=== PATIENT | male | born 2005 | race Caucasian/White ===

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

== ENCOUNTER 2023-06-13 05:55 | Day surgery (SDC) | payer OTHER ==
[2023-06-13 06:38] VITALS: RESP 18
[2023-06-13] MEDS ORDERED: Lactated Ringers 1,000 ML IV ONE (06:49)
[2023-06-13] MEDS ORDERED: Lactated Ringers 1,000 ML IV SCH (07:00)
[2023-06-13] MEDS ORDERED: DIPRIVAN 200 MG/20 ML IV ONE ×2 (07:43→08:03)
[2023-06-13] MEDS ORDERED: Versed 2 MG/2 ML Injection ONE (07:43)
[2023-06-13] MEDS ORDERED: Xylocaine-Mpf 2% 5 Ml Vial ONE (07:43)
[2023-06-13] MEDS ORDERED: SUBLIMAZE 100 MCG/2 ML ONE (07:43)
[2023-06-13 08:59] VITALS: BP 125/79; PULSE 56; TEMP 99.1; O2SAT 100
--- NOTE | 2023-06-13 09:53 | OP ---
SURGERY DATE/TIME: 06/13/2023 0746 PREOPERATIVE DIAGNOSIS: Rectal bleeding. POSTOPERATIVE DIAGNOSIS: Normal colon. PROCEDURE: Colonoscopy. SURGEON: Dr. Love. ANESTHESIA: Medications given by anesthesia department. HISTORY: The patient is a 18-year-old white male patient who reports he has been having bleeding from the rectum off and on for the past six months. He also reports that there has been blood mixed in with the stool but most often on the toilet paper when he wipes. The patient has had no problems otherwise with his colon in regards to diarrhea or mucousy stool. The patient was felt the need to have endoscopic evaluation. He was appraised of the risks of the procedure including the risk of perforation, phlebitis, untoward reaction to medication, bleeding and missed lesions. The patient verbalized his understanding and desired to have the procedure performed. DESCRIPTION OF PROCEDURE: The patient was given the medications by the anesthesia department. He had continuous pulse oximetry, ECG monitoring and intermittent blood pressure monitoring during the examination. He was placed in the left lateral decubitus position. A digital rectal examination was performed and revealed normal anal sphincter tone, no masses and normal prostate. No significant hemorrhoids were noted. The flexible Olympus pediatric colonoscope was used to intubate the rectum. A view of the colon was developed sequentially to the cecum including approximately 10 cm into the terminal ileum. Upon insertion and withdrawal, including a retroflex view in the rectum, no mucosal lesions were encountered. The scope was removed from the patient who tolerated the procedure well and was sent back to OP recovery in good condition. The prep was noted to be fair to good.
== END 2023-06-13 09:06 | disposition home or self-care (01) ==
LOC: SDC 05:55
PROVIDERS: ATTEND Family Medicine
DX: K92.1 Melena (principal)
CPT/HCPCS: J2250; J2704; J3010

== ENCOUNTER 2024-06-07 03:18 | Emergency (ER) | payer OTHER ==
[2024-06-07 03:37] VITALS: TEMP 98.2
[2024-06-07 04:03] LABS: Absolute Neutrophil Ct (ANC) 4.42 x10^3/uL (1.78-5.38); BASOPHIL % 0.8 % (0.2-1.2); Basophil (Absolute #) 0.06 x10^3/uL (0.01-0.08); Eosinophil % 3.4 % (0.8-7.0); Eosinophil (Absolute #) 0.26 x10^3/uL (0.04-0.54); Hematocrit 41.1 % (40.1-51.0); IMMATURE GRAN # 0.02 x10^3u/L (0.001-0.031); IMMATURE GRAN % 0.3 % (0.001-0.429); Lymphocytes % 29.6 % (21.8-53.1); Mean Cell Volume 84.6 fL (79.0-92.2); Mean Corpuscular Hemoglobin 28.8 pg (25.7-32.2); Mean Corpuscular Hgb Concent. 34.1 g/dL (32.3-36.5); Mean Platelet Volume 9.6 fL (9.4-12.4); Neutrophil % 56.9 % (34.0-67.9); Platelet Count 230 x10^3/uL (163-337); Red Blood Count 4.86 x10^6/uL (4.63-6.08); Red Cell Distribution Width 12.4 % (11.6-14.4); White Blood Count 7.8 x10^3/uL (4.23-9.07)
--- NOTE | 2024-06-07 04:04 | ERPHSYRPT ---
- History of Present Illness Time Seen by Provider: 06/07/24 03:56 Source: patient Exam Limitations: no limitations Patient Subjective Stated Complaint: pt states that he was told he has skeletal muscle pain. pt states that he has pain to chest, neck, and back Triage Nursing Assessment: pt ambulated into the er holding chest; pt is axo x4; pt is moaning, yelling out with movement; c/o pain; pt states 10/10 pain to rt chest, rt neck, rt back; clear lung sounds in all lobes; pt states pain with deep breathing; no respiratory distress present; clear apical heart tone; pt denies fall trauma injury; skin PDW; vitals wnl Physician History: 19-year-old male presents to emergency department for evaluation of right-sided shoulder and chest pain. Symptoms started approximately 3 days ago. Patient went to a chiropractor. He had a chest x-ray. Patient reports the chiropractor told him the chest x-ray was negative. Patient had cervical traction and other chiropractic treatments. Pain improved somewhat but then returned. Pain described as an ache that is in the shoulder upper chest area. Pain worse with deep inspiration pain improved with rest. No associated nausea vomiting or diaphoresis. Patient voices no other complaints or concerns at this time. Portions of this note were created with voice recognition technology. There may be grammatical, spelling, punctuation or sound alike errors Timing/Duration: day(s) (3 days ago) Severity: moderate Modifying Factors: Improves With: movement Associated Symptoms: denies symptoms Allergies/Adverse Reactions: No Known Drug Allergies Allergy (Verified 06/07/24 03:19) Home Medications: Dextroamphetamine/Amphetamine [Dextroamp-Amphetamin 15 mg Tab] 15 mg PO DAILY 06/07/24 [History] Hx Tetanus, Diphtheria Vaccination/Date Given: No Hx Influenza Vaccination/Date Given: No Hx Pneumococcal Vaccination/Date Given: No Immunizations Up to Date: No Travel Risk - International Travel Have you traveled outside of the country in past 3 weeks: No - Emerging Infectious Disease Are you exhibiting symptoms associated with any current EIDs: No - Review of Systems Constitutional: No Symptoms, No Fever, No Chills Eyes: No Symptoms Ears, Nose, & Throat: No Symptoms Respiratory: No Symptoms, No Cough, No Dyspnea Cardiac: No Symptoms, No Chest Pain, No Edema, No Syncope Abdominal/Gastrointestinal: No Symptoms, No Abdominal Pain, No Nausea, No Vomiting, No Diarrhea Genitourinary Symptoms: No Symptoms, No Dysuria Musculoskeletal: No Symptoms, No Back Pain, No Neck Pain Skin: No Symptoms, No Rash Neurological: No Symptoms, No Dizziness, No Focal Weakness, No Sensory Changes Psychological: No Symptoms Endocrine: No Symptoms Hematologic/Lymphatic: No Symptoms Immunological/Allergic: No Symptoms All Other Systems: Reviewed and Negative - Past Medical History Pertinent Past Medical History: Yes Neurological History: No Pertinent History ENT History: No Pertinent History Cardiac History: No Pertinent History Respiratory History: Asthma Endocrine Medical History: No Pertinent History Musculoskeletal History: No Pertinent History GI Medical History: GERD History: No Pertinent History Psycho-Social History: Attention Deficit Disorder, Bipolar Male Reproductive Disorders: No Pertinent History - Past Surgical History Past Surgical History: Yes Neuro Surgical History: No Pertinent History Cardiac: No Pertinent History Respiratory: No Pertinent History Gastrointestinal: No Pertinent History Genitourinary: No Pertinent History Musculoskeletal: No Pertinent History Male Surgical History: Other Other Surgical History: hydrocele - Social History Smoking Status: Never smoker Exposure to second hand smoke: No Drug Use: marijuana Patient Lives Alone: No - Social Determinants of Health Will the patient participate in the screening: Yes Do you worry about a steady place to live?: No Do you have any problems with any of the following?: No known problems In the past 12 months,have you had to go without utilities?: No Transportation Issues: No Has anyone in your support network made you feel unsafe?: No Have you or anyone in your house had to go without enough: No - Nursing Vital Signs Nursing Vital Signs: Initial Vital Signs Temperature 98.2 F 06/07/24 03:19 Pulse Rate 76 06/07/24 03:19 Respiratory Rate 18 06/07/24 03:19 Blood Pressure 130/73 06/07/24 03:19 O2 Sat by Pulse Oximetry 99 06/07/24 03:19 Pain Scale Pain Intensity [Right Anterior 10 /Posterior Chest] Pain Intensity 6 - Physical Exam General Appearance: no apparent distress, alert Eye Exam: PERRL/EOMI, eyes nml inspection Ears, Nose, Throat Exam: normal ENT inspection, moist mucous membranes Neck Exam: normal inspection, non-tender, supple, full range of motion Respiratory Exam: normal breath sounds, lungs clear, airway intact, other (Unable to elicit pain with palpation however active motion of his right shoulder reproduces pain), No respiratory distress Cardiovascular Exam: regular rate/rhythm, normal heart sounds, normal peripheral pulses Gastrointestinal/Abdomen Exam: soft, normal bowel sounds, No tenderness, No mass Back Exam: normal inspection, normal range of motion, No CVA tenderness, No vertebral tenderness Extremity Exam: normal inspection, normal range of motion, pelvis stable Neurologic Exam: alert, oriented x 3, cooperative, normal mood/affect, sensation nml, No motor deficits Skin Exam: normal color, warm, dry, No rash Lymphatic Exam: No adenopathy SpO2 Interpretation: normal SpO2: 99 O2 Delivery: Room Air - Course Nursing assessment & vital signs reviewed: Yes - CT Exams Chest CT Interpretation: Discussed w/radiologist (Right pleural effusion left lower lobe nodular density measuring 7 mm) Ordered Tests: Active Orders 24 hr Category Date Time Status Scalder STAT Care 06/07/24 03:43 Active EKG-ER Only STAT Care 06/07/24 03:42 Active IV Insertion STAT Care 06/07/24 03:42 Active Pulse Oximetry (ED) STAT Care 06/07/24 03:42 Active CHEST WITH CONTRAST [CT] Stat Exams 06/07/24 04:17 Completed CBC W DIFF Stat Lab 06/07/24 04:01 Completed CMP Stat Lab 06/07/24 04:01 Completed TROPONIN Q4H Lab 06/07/24 04:01 Completed Medication Summary Discontinued Medications Generic Name Dose Route Start Last Admin Trade Name Freq PRN Reason Stop Dose Admin Sodium Chloride 1,000 mls @ 999 mls/hr 06/07/24 03:42 06/07/24 05:51 Sodium Chloride 0.9% 1000 Ml IV 06/07/24 04:42 Infused .Q1H1M STA Infusion Sodium Chloride Confirm 06/07/24 04:31 Sodium Chloride 0.9% 1000 Ml Administered 06/07/24 04:32 Dose 1,000 mls @ ud .ROUTE .STK-MED ONE Morphine Sulfate 4 mg 06/07/24 03:45 06/07/24 04:35 Morphine Sulfate 4 Mg/Ml Injection IV 06/07/24 03:46 4 mg STAT ONE Administration Morphine Sulfate Confirm 06/07/24 04:31 Morphine Sulfate 4 Mg/Ml Injection Administered 06/07/24 04:32 Dose 4 mg .ROUTE .STK-MED ONE Ondansetron HCl 4 mg 06/07/24 03:45 06/07/24 04:36 Ondansetron Hcl 4 Mg/2 Ml Vial IV 06/07/24 03:46 4 mg STAT ONE Administration Ondansetron HCl Confirm 06/07/24 04:31 Ondansetron Hcl 4 Mg/2 Ml Vial Administered 06/07/24 04:32 Dose 4 mg .ROUTE .STK-MED ONE Lab/Rad Data: Laboratory Result Diagrams 06/07/24 04:01 06/07/24 04:01 Laboratory Results 06/07/24 06/07/24 06/07/24 Range/Units 04:01 04:01 04:01 WBC 7.8 (4.23-9.07) x10^3/uL RBC 4.86 (4.63-6.08) x10^6/uL Hgb 14.0 (13.7-17.5) g/dL Hct 41.1 (40.1-51.0) % MCV 84.6 (79.0-92.2) fL MCH 28.8 (25.7-32.2) pg MCHC 34.1 (32.3-36.5) g/dL RDW 12.4 (11.6-14.4) % Plt Count 230 (163-337) x10^3/uL MPV 9.6 (9.4-12.4) fL Gran % 56.9 (34.0-67.9) % Immature Gran % (Auto) 0.3 (0.001-0.429) % Nucleat RBC Rel Count 0.0 (0.00-0.2) % Eos # (Auto) 0.26 (0.04-0.54) x10^3/uL Immature Gran # (Auto) 0.02 (0.001-0.031) x10^3u/L Absolute Lymphs (auto) 2.30 (1.32-3.57) x10^3/uL Absolute Monos (auto) 0.70 (0.30-0.82) x10^3/uL Absolute Nucleated RBC 0.00 (0.00-0.012) x10^3u/L Lymphocytes % 29.6 (21.8-53.1) % Monocytes % 9.0 (5.3-12.2) % Eosinophils % 3.4 (0.8-7.0) % Basophils % 0.8 (0.2-1.2) % Absolute Granulocytes 4.42 (1.78-5.38) x10^3/uL Basophils # 0.06 (0.01-0.08) x10^3/uL Sodium 140 (135-145) mmol/L Potassium 3.8 (3.5-5.1) mmol/L Chloride 104 (98-107) mmol/L Carbon Dioxide 24 (22-30) mmol/L Anion Gap 15.2 H (5-15) MEQ/L BUN 11 (9-20) mg/dL Creatinine 0.81 (0.66-1.25) mg/dL Estimated GFR 128.6 ML/MIN Glucose 114 H (74-106) mg/dL Calcium 9.4 (8.4-10.2) mg/dL Total Bilirubin 0.30 (0.2-1.3) mg/dL AST 34 (17-59) U/L ALT 37 (0-50) U/L Alkaline Phosphatase 75 (38-126) U/L Troponin I < 0.012 (0.000-0.033) ng/mL Serum Total Protein 7.5 (6.3-8.2) g/dL Albumin 4.4 (3.5-5.0) g/dL - Progress Progress: improved Progress Note: 19-year-old male presents to our ED for evaluation of right thoracic chest pain. CT scan reveals a right pleural effusion. The cause is unknown. Patient currently has an appointment scheduled with his primary care doctor Dr. Love. Patient will follow-up this morning for further evaluation and treatment of this finding. A prescription for Colville forwarded to patient's pharmacy for pain control. Patient advised to return to our ED if symptoms worsen continue or if he develops any new or concerning symptomology. Patient reassessed. He is resting comfortably. No indication for further workup at this time. He will fo llow-up with Dr. Love today. Patient understands the plan of care. He voices no other complaints or concerns at this time. Portions of this note were created with voice recognition technology. There may be grammatical, spelling, punctuation or sound alike errors Complexity of problem addressed is moderate acute complicated no critical care time. Complex of data reviewed and analyzed moderate. Test ordered chest reviewed results analyzed and correlated clinically with history and physical exam. Risk of complication or risk of morbidity/mortality of patient management is high. Patient received IV morphine and a prescription for Colville forwarded to patient's pharmacy. Vital stable. Time spent to discharge patient is approximately 15 minutes. Plan of care established for shared decision making. No social determinants of health present to impede follow-up. Portions of this note were created with voice recognition technology. There may be grammatical, spelling, punctuation or sound alike errors 06/07/24 06:46 06/07/24 06:49 Counseled pt/family regarding: lab results, diagnosis, need for follow-up, rad results - Departure Departure Disposition: Home Clinical Impression: Pleural effusion, right, Lung nodule Condition: Stable Critical Care Time: No Referrals: LAMAR LOVE [Primary Care Provider] - Follow up/PCP as directed Instructions: Pleural effusion, Pulmonary nodule Additional Instructions: Your CAT scan reveals a right lung pleural effusion. The cause is unknown however it may be related to your pain. At this point this finding is nonspecific. Please follow-up with your primary care doctor, Dr. Love today as scheduled at 8:45 AM for further evaluation of this finding. Discharge/Care Plan GINA MAHTIAS was seen on 06/07/24 in the Emergency Room. The patient was counseled regarding Diagnosis,Lab results, Imaging studies, need for follow up and when to return to the Emergency Room. Prescriptions given: Discharge Note I have spoken with the patient and/or caregivers. I have explained the patient's condition, diagnosis and treatment plan based on the information available to me at this time. I have answered the patient's and/or caregiver's questions and addressed any concerns. The patient and/or caregivers have as good understanding of the patient's diagnosis, condition and treatment plan as can be expected at this point. The vital signs have been stable. The patient's condition is stable and appropriate for discharge from the emergency department. The patient will pursue further outpatient evaluation with the primary care physician or other designated or consulting physician as outlined in the discharge instructions. The patient and/or caregivers are agreeable to this plan of care and follow-up instructions have been explained in detail. The patient and/or caregivers have received these instruction. The patient/and or caregivers are aware that any significant change in condition or worsening of symptoms should prompt an immediate return to this or the closest emergency department or call 911. Prescriptions: Hydrocodone/APAP 5/325 [Colville 5/325 mg] 1 each PO Q6H PRN PRN #10 tablet MDD 4 PRN Reason: Pain
[2024-06-07] MEDS ORDERED: Zofran 4 MG/2 ML VIAL ONE (04:31)
[2024-06-07] MEDS ORDERED: MORPHINE SULFATE 4 MG INJ ONE (04:31)
[2024-06-07] MEDS ORDERED: Sodium Chloride 0.9% 1000 ML 1,000 ML ONE (04:31)
[2024-06-07 04:33] LABS: ALBUMIN 4.4 g/dL (3.5-5.0); ANION GAP 15.2 MEQ/L (5-15); BILIRUBIN,TOTAL 0.3 mg/dL (0.2-1.3); Calcium 9.4 mg/dL (8.4-10.2); Creatinine 1 0.81 mg/dL (0.66-1.25); EST GLOMERULAR FILTRATION RATE 128.6 ML/MIN; Potassium 3.8 mmol/L (3.5-5.1); Total Protein 7.5 g/dL (6.3-8.2)
[2024-06-07] MEDS: MORPHINE SULFATE 4 MG INJ IV ONE (04:35)
[2024-06-07] MEDS: Sodium Chloride 0.9% 1000 ML 1,000 ML IV STA (04:35)
[2024-06-07] MEDS: Zofran 4 MG/2 ML VIAL IV ONE (04:36)
--- NOTE | 2024-06-07 05:05 | XRAY ---
CLINICAL HISTORY: pain COMPARISON: None. TECHNIQUE: Contiguous 3.[address] images of the chest were acquired with the administration of 80cc Isovue-370mg/ml intravenous contrast. Coronal and sagittal reconstructions were obtained. One of the following dose reduction techniques was utilized for this exam: Automated exposure control, adjustment of the mA and/or kV according to patient size, and use of iterative reconstruction FINDINGS: Lungs: Mild right pleural effusion with underlying right lower lobe fibro atelectatic changes. Middle lobe atelectatic changes were also seen. Left lower lobe nodular density measuring 7mm with surrounding ground glass halo. Lungs are otherwise clear with no evidence of consolidation, collapse, or focal lesions. No ground-glass opacities or interstitial changes. No left pleural effusion or pleural thickening. Mediastinum: No mediastinal mass or abnormal lymphadenopathy. Normal appearance of the thymus. Hilar Structures: Normal size and configuration, no enlargement. Heart and Great Vessels: Normal heart size and configuration. No pericardial effusion. Normal caliber and course of the thoracic aorta and other great vessels. No significant atherosclerosis or aneurysm. Normal enhancement of the great vessels post-contrast. Pulmonary Arteries: No evidence of pulmonary embolism. Normal size and course of the pulmonary arteries. Esophagus: Normal course and caliber. No masses or dilatation. Bones: No fractures or lytic/sclerotic lesions. Normal bone density and alignment. No evidence of rib fractures. Chest Wall: No masses or soft tissue abnormalities. Upper Abdomen: Visualized portions of the liver, spleen, pancreas, adrenal glands, and kidneys are normal. No abnormalities are noted in the visualized upper abdominal organs. Thyroid: Normal size and morphology. No nodules or masses. IMPRESSION: 1. Mild right pleural effusion with underlying right lower lobe fibro atelectatic changes. Middle lobe atelectatic changes were also seen. 2. Left lower lobe nodular density measuring 7mm with surrounding ground glass halo, possibly inflammatory. Clinical-laboratory correlation and follow-up is advised. 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 Electronically Signed by: Brandon Washburn MD. (06/07/2024 05:00:53 EST)
[2024-06-07 06:42] VITALS: BP 120/67; PULSE 74; RESP 27
[2024-06-07 06:46] VITALS: O2SAT 99
== END 2024-06-07 06:58 | disposition home or self-care (01) ==
LOC: ED 03:18
DX: J90 Pleural effusion, not elsewhere classified (principal); R91.1 Solitary pulmonary nodule; R07.9 Chest pain, unspecified; M54.2 Cervicalgia; M54.9 Dorsalgia, unspecified; M25.511 Pain in right shoulder
CPT/HCPCS: 36000; 36415; 71260; 80053; 84484; 85025; 93005; 93041; 94760; 96360; 96374; 99284; J2270; J2405

== ENCOUNTER 2024-09-04 06:55 | Emergency (ER) | payer OTHER ==
[2024-09-04 07:09] VITALS: RESP 18; TEMP 97.7
[2024-09-04] MEDS: ZOFRAN ODT 4 MG PO ONE (07:42)
[2024-09-04] MEDS ORDERED: ZOFRAN ODT 4 MG ONE (07:42)
[2024-09-04 08:09] LABS: Group A Strep NOT DETECTED (NEGATIVE)
[2024-09-04 08:16] VITALS: O2SAT 100
[2024-09-04 08:20] LABS: INFLUENZA A NEGATIVE (NEGATIVE); INFLUENZA B NEGATIVE (NEGATIVE); RESPIRATORY SYNCTIAL VIRUS NEGATIVE (NEGATIVE); SARS-CoV-2 Xpert Express NEGATIVE (NEGATIVE)
--- NOTE | 2024-09-04 08:58 | ERPHSYRPT ---
- History of Present Illness Time Seen by Provider: 09/04/24 08:01 Historian: patient, family Exam Limitations: no limitations Patient Subjective Stated Complaint: Pt states "I have been vomiting since 3 am this morning." Triage Nursing Assessment: Pt presented moaning. Pt ambulates with an upright steady gait, able to speak in clear full sentences. pt resting comfortably on the bed without difficulty Physician History: 19-year-old male with history of ADHD presented to the ER with sudden onset nausea vomiting with some abdominal cramping started around 3 AM. Patient reports multiple episodes of nonprojectile, nonbilious vomiting with last episode prior to arrival. Denies any diarrhea. Other family members have similar symptoms. No fever chills cough or congestion reported. Allergies/Adverse Reactions: No Known Drug Allergies Allergy (Verified 06/07/24 03:19) Home Medications: Dextroamphetamine/Amphetamine [Dextroamp-Amphetamin 15 mg Tab] 15 mg PO DAILY 06/07/24 [History] Hx Tetanus, Diphtheria Vaccination/Date Given: No Hx Influenza Vaccination/Date Given: No Hx Pneumococcal Vaccination/Date Given: No Immunizations Up to Date: No Travel Risk - International Travel Have you traveled outside of the country in past 3 weeks: No - Emerging Infectious Disease Are you exhibiting symptoms associated with any current EIDs: Yes Symptoms: Abdominal Pain, Vomitting - Review of Systems Constitutional: Fatigue Eyes: No Symptoms Ears, Nose, & Throat: No Symptoms Respiratory: No Symptoms Cardiac: No Symptoms Abdominal/Gastrointestinal: Abdominal Pain, Nausea, Vomiting Genitourinary Symptoms: No Symptoms Musculoskeletal: Myalgias Neurological: No Symptoms Psychological: No Symptoms - Past Medical History Pertinent Past Medical History: Yes Neurological History: No Pertinent History ENT History: No Pertinent History Cardiac History: No Pertinent History Respiratory History: Asthma Endocrine Medical History: No Pertinent History Musculoskeletal History: No Pertinent History GI Medical History: GERD History: No Pertinent History Psycho-Social History: Attention Deficit Disorder, Bipolar Male Reproductive Disorders: No Pertinent History - Past Surgical History Past Surgical History: Yes Neuro Surgical History: No Pertinent History Cardiac: No Pertinent History Respiratory: No Pertinent History Gastrointestinal: No Pertinent History Genitourinary: No Pertinent History Musculoskeletal: No Pertinent History Male Surgical History: Other Other Surgical History: hydrocele - Social History Smoking Status: Current some day smoker How long have you smoked: year Exposure to second hand smoke: No Drug Use: marijuana Patient Lives Alone: No - Social Determinants of Health Will the patient participate in the screening: Yes Do you worry about a steady place to live?: No Do you have any problems with any of the following?: No known problems In the past 12 months,have you had to go without utilities?: No Transportation Issues: No Has anyone in your support network made you feel unsafe?: No Have you or anyone in your house had to go without enough: No - Nursing Vital Signs Nursing Vital Signs: Initial Vital Signs Temperature 97.7 F 09/04/24 07:04 Pulse Rate 97 H 09/04/24 07:04 Respiratory Rate 18 09/04/24 07:04 Blood Pressure 121/84 09/04/24 07:04 O2 Sat by Pulse Oximetry 98 09/04/24 07:04 Pain Scale Pain Intensity 0 - Physical Exam General Appearance: no apparent distress Eye Exam: PERRL/EOMI Ears, Nose, Throat Exam: normal ENT inspection Neck Exam: normal inspection, non-tender, supple, full range of motion Respiratory Exam: normal breath sounds, lungs clear Cardiovascular Exam: regular rate/rhythm, normal heart sounds Gastrointestinal/Abdomen Exam: soft, No normal bowel sounds (Hyperactive), No tenderness Back Exam: normal inspection Neurologic Exam: alert, oriented x 3, cooperative Skin Exam: normal color SpO2 Interpretation: normal SpO2: 100 O2 Delivery: Room Air Ordered Tests: Medication Summary Discontinued Medications Generic Name Dose Route Start Last Admin Trade Name Freq PRN Reason Stop Dose Admin Ondansetron HCl 4 mg 09/04/24 07:40 09/04/24 07:42 Zofran 4 Mg/Udtablet Orally Disintegrating PO 09/04/24 07:41 4 mg STAT ONE Administration Ondansetron HCl Confirm 09/04/24 07:42 Zofran 4 Mg/Udtablet Orally Disintegrating Administered 09/04/24 07:43 Dose 4 mg .ROUTE .STK-MED ONE Lab/Rad Data: Laboratory Results 09/04/24 Range/Units 07:40 Influenza Type A Ag Pending Influenza Type B Ag Pending RSV (PCR) Pending SARS-CoV-2 (PCR) Pending Group A Strep Antibody NOT DETECTED (NEGATIVE) - Progress Progress: improved, re-examined Progress Note: 09/04/24 08:58 19-year-old is evaluated in the ER for sudden onset nausea vomiting with some abdominal cramping. Patient has no peritoneal signs on exam. He is given Zofran and he tolerated oral challenge. Patient is not tachypneic tachycardic. He is afebrile. Has negative COVID flu RSV and strep. I believe patient has viral etiology gastroenteritis symptoms, recommended supportive care and outpatient follow-up. Do not think patient needs any workup and is stable for discharge. Discussed signs symptoms of worsening needing return to ER which she seems understanding. Counseled pt/family regarding: lab results, diagnosis, need for follow-up Medical Desision Making - Independent Historian Additional History obtained from: Spouse - Diagnostic Testing Diagnostic test were ordered, analyzed, and reviewed by me: Yes - Risk of complications The pt has a mod risk of morbidity or mortality based on: Need for prescription drug management - Departure Departure Disposition: Home Clinical Impression: Viral gastroenteritis Condition: Stable Critical Care Time: No Referrals: LAMAR CARBAJAL [Primary Care Provider] - Follow up with PCP 1 day Instructions: Viral gastroenteritis in adults Additional Instructions: Drink plenty of fluids. Take Tylenol as needed along with Zofran. Follow-up with primary care for reevaluation. Return to ER for intractable vomiting, abdominal pain or if develop fever chills etc. Prescriptions: Ondansetron ODT 4 MG [Zofran Odt 4 mg] 1 ea PO QIDPRN PRN #10 tablet PRN Reason: n/v
[2024-09-04 09:05] VITALS: BP 139/74; PULSE 87
== END 2024-09-04 09:06 | disposition home or self-care (01) ==
LOC: ED 06:55
DX: A08.4 Viral intestinal infection, unspecified (principal); R11.2 Nausea with vomiting, unspecified; R10.9 Unspecified abdominal pain; Z79.899 Other long term (current) drug therapy
CPT/HCPCS: 0241U; 87651; 99283; Q0162

== ENCOUNTER 2024-11-15 14:59 | Emergency (ER) | payer OTHER ==
[2024-11-15 15:12] VITALS: TEMP 97.8
--- NOTE | 2024-11-15 15:16 | ERPHSYRPT ---
- History of Present Illness Time Seen by Provider: 11/15/24 15:16 Source: patient Exam Limitations: no limitations Patient Subjective Stated Complaint: Pt states "I stopped taking latuda for awhile and 4 days ago I started it back again and now I cannot sit still, I feel like I am losing my mind. I have also been having suicidal thoughts." Triage Nursing Assessment: Pt presented alert and oriented X 3, skin pwd. Pt ambulates with an upright steady gait, able to speak in full sentences. Pt unable to sit still, has body spasms. Physician History: This is a 19-year-old white male patient who has a history of asthma, gastroesophageal reflux disease, ADD and bipolar disorder who presents to the emergency department by private vehicle accompanied by significant other with the complaint of "I feel like I am losing my mind" and having suicidal thoughts. Patient stopped his Latuda medication several months ago. He restarted it at the ending dose 4 days ago. Yesterday, and worse today, he started having symptoms of suicidal thoughts and feel as though he is out of control and losing his mind. He denies illicit drug use. He denies overdose of his prescribed medication. He is not homicidal. He has no hallucinations. Patient denies headache. Patient denies chest pain. Patient denies shortness of breath. He has no abdominal pain. He has no nausea vomiting or diarrhea symptoms. Timing/Duration: today Severity of Symptoms-Max: moderate Severity of Symptoms-Current: mild (To moderate) Context related to: other (Medication use) Suicidal thoughts: other (Patient has suicidal thoughts but no specific plan) Associated Symptoms: anxiety, depressed, frustrated, suicidal ideation Previous symptoms: same symptoms as today, other (Patient recently started back full dose Latuda after being off of it for several months) Allergies/Adverse Reactions: No Known Drug Allergies Allergy (Verified 06/07/24 03:19) Home Medications: Lurasidone HCl 40 mg PO DAILY 11/15/24 [History] Ropinirole HCl 0.25 mg PO DAILY 11/15/24 [History] Hx Tetanus, Diphtheria Vaccination/Date Given: No Hx Influenza Vaccination/Date Given: No Hx Pneumococcal Vaccination/Date Given: No Immunizations Up to Date: No Travel Risk - International Travel Have you traveled outside of the country in past 3 weeks: No - Emerging Infectious Disease Are you exhibiting symptoms associated with any current EIDs: No Symptoms: Abdominal Pain, Vomitting - Past Medical History Pertinent Past Medical History: Yes Neurological History: No Pertinent History ENT History: No Pertinent History Cardiac History: No Pertinent History Respiratory History: Asthma Endocrine Medical History: No Pertinent History Musculoskeletal History: No Pertinent History GI Medical History: GERD History: No Pertinent History Psycho-Social History: Attention Deficit Disorder, Bipolar Male Reproductive Disorders: No Pertinent History - Past Surgical History Past Surgical History: Yes Neuro Surgical History: No Pertinent History Cardiac: No Pertinent History Respiratory: No Pertinent History Gastrointestinal: No Pertinent History Genitourinary: No Pertinent History Musculoskeletal: No Pertinent History Male Surgical History: Other Other Surgical History: hydrocele - Social History Smoking Status: Never smoker Exposure to second hand smoke: No Drug Use: marijuana - Social Determinants of Health Will the patient participate in the screening: Yes Do you worry about a steady place to live?: No Do you have any problems with any of the following?: No known problems In the past 12 months,have you had to go without utilities?: No Transportation Issues: No Has anyone in your support network made you feel unsafe?: No Have you or anyone in your house had to go w/o enough food: No - Review of Systems Constitutional: No Symptoms Eyes: No Symptoms Ears, Nose, & Throat: No Symptoms Respiratory: No Symptoms Cardiac: No Symptoms Abdominal/Gastrointestinal: No Symptoms Genitourinary Symptoms: No Symptoms Musculoskeletal: No Symptoms Skin: No Symptoms Neurological: No Symptoms Psychological: Anxiety, Suicidal Ideations, Mood Changes Endocrine: No Symptoms Hematologic/Lymphatic: No Symptoms Immunological/Allergic: No Symptoms All Other Systems: Reviewed and Negative - Nursing Vital Signs Nursing Vital Signs: Initial Vital Signs Pulse Rate 71 11/15/24 15:07 Respiratory Rate 13 11/15/24 15:07 Blood Pressure 148/88 11/15/24 15:07 O2 Sat by Pulse Oximetry 100 11/15/24 15:07 Pain Scale Pain Intensity 0 - Physical Exam General Appearance: no apparent distress, alert, anxiety Eyes, Ears, Nose, Throat Exam: normal ENT inspection, moist mucous membranes Neck Exam: normal inspection, non-tender, supple, full range of motion Respiratory Exam: normal breath sounds, lungs clear, airway intact, No chest tenderness, No respiratory distress Cardiovascular Exam: regular rate/rhythm, normal heart sounds, normal peripheral pulses Gastrointestinal/Abdominal Exam: soft, normal bowel sounds, No tenderness, No guarding Extremities Exam: normal inspection, normal range of motion, No evidence of injury Current Suicidality: denies suicide plan 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, 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, oriented x 3, anxious, depressed affect Appearance: appropriate appearance, appropriate insight, neat, no memory impairment Behavior/Eye Contact/Speech: alert & cooperative, good eye contact, normal speech Thoughts/Hallucinations: normal thought pattern, no apparent hallucination Skin Exam: normal color, warm, dry SpO2 Interpretation: normal SpO2: 100 O2 Delivery: Room Air - Course Nursing assessment & vital signs reviewed: Yes EKG Interpreted by Me: RATE (83), Sinus Rhythm, NORMAL AXIS, NORMAL INTERVALS, NORMAL QRS, Other (No acute ischemia on today's twelve-lead EKG.) Ordered Tests: Active Orders 24 hr Category Date Time 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 Care 11/15/24 15:17 Active EKG-ER Only STAT Care 11/15/24 15:16 Active Tele-Health Consult ROUTINE Cons 11/15/24 17:01 Active ACETAMINOPHEN Stat Lab 11/15/24 13:32 Completed CBC W DIFF Stat Lab 11/15/24 13:32 Completed CMP Stat Lab 11/15/24 13:32 Completed ETHYL ALCOHOL Stat Lab 11/15/24 13:32 Completed SALICYLATE Stat Lab 11/15/24 13:32 Completed UA W/RFX UR CULTURE Stat Lab 11/15/24 15:27 Completed Urine Triage Profile Stat Lab 11/15/24 15:27 Completed Medication Summary Discontinued Medications Generic Name Dose Route Start Last Admin Trade Name Freq PRN Reason Stop Dose Admin Lorazepam 1 mg 11/15/24 15:47 11/15/24 15:49 Lorazepam 2 Mg/1 Ml 2 Mg Vial IM 11/15/24 15:48 1 mg STAT ONE Administration Lorazepam Confirm 11/15/24 15:48 Lorazepam 2 Mg/1 Ml 2 Mg Vial Administered 11/15/24 15:49 Dose 2 mg .ROUTE .STK-MED ONE Potassium Chloride 20 meq 11/15/24 16:34 11/15/24 16:43 Potassium Chloride Tab 10 Meq Tab PO 11/15/24 16:35 20 meq STAT ONE Administration Potassium Chloride Confirm 11/15/24 16:42 Potassium Chloride Tab 10 Meq Tab Administered 11/15/24 16:43 Dose 20 meq .ROUTE .STK-MED ONE Lab/Rad Data: Laboratory Result Diagrams 11/15/24 13:32 11/15/24 13:32 Laboratory Results 11/15/24 11/15/24 11/15/24 Range/Units 15:27 15:27 13:32 WBC (4.23-9.07) x10^3/uL RBC (4.63-6.08) x10^6/uL Hgb (13.7-17.5) g/dL Hct (40.1-51.0) % MCV (79.0-92.2) fL MCH (25.7-32.2) pg MCHC (32.3-36.5) g/dL RDW (11.6-14.4) % Plt Count (163-337) x10^3/uL MPV (9.4-12.4) fL Gran % (34.0-67.9) % Immature Gran % (Auto) (0.001-0.429) % Nucleat RBC Rel Count (0.00-0.2) % Eos # (Auto) (0.04-0.54) x10^3/uL Immature Gran # (Auto) (0.001-0.031) x10^3u/L Absolute Lymphs (auto) (1.32-3.57) x10^3/uL Absolute Monos (auto) (0.30-0.82) x10^3/uL Absolute Nucleated RBC (0.00-0.012) x10^3u/L Lymphocytes % (21.8-53.1) % Monocytes % (5.3-12.2) % Eosinophils % (0.8-7.0) % Basophils % (0.2-1.2) % Absolute Granulocytes (1.78-5.38) x10^3/uL Basophils # (0.01-0.08) x10^3/uL Sodium 142 (135-145) mmol/L Potassium 3.1 L (3.5-5.1) mmol/L Chloride 104 (98-107) mmol/L Carbon Dioxide 23 (22-30) mmol/L Anion Gap 18.7 H (5-15) MEQ/L BUN 9 (9-20) mg/dL Creatinine 0.81 (0.66-1.25) mg/dL Estimated GFR 128.6 ML/MIN Glucose 95 (74-106) mg/dL Calcium 9.9 (8.4-10.2) mg/dL Total Bilirubin 0.60 (0.2-1.3) mg/dL AST 27 (17-59) U/L ALT 25 (0-50) U/L Alkaline Phosphatase 67 (38-126) U/L Serum Total Protein 8.2 (6.3-8.2) g/dL Albumin 5.1 H (3.5-5.0) g/dL Urine Color Yellow (Yellow) Urine Appearance Clear (Clear) Urine pH 7.5 (4.6-8.0) Ur Specific Bath <=1.005 (1.005-1.030) Urine Protein Negative (Negative) Urine Glucose (UA) Negative (Negative) mg/dL Urine Ketones Negative (Negative) Urine Blood Negative (Negative) Urine Nitrite Negative (Negative) Urine Bilirubin Negative (Negative) Urine Urobilinogen 0.2 (0.2) mg/dL Ur Leukocyte Esterase Negative (Negative) U Hyaline Cast (Auto) NONE SEEN (0-2) /LPF Urine Microscopic RBC 0-2 (0-5) /HPF Urine Microscopic WBC 0-2 (0-5) /HPF Ur Epithelial Cells None Seen (None Seen) /HPF Urine Bacteria None Seen (None Seen) /HPF Urine Culture Reflexed NO (NO) Salicylates < 1.0 L (2-20) mg/dL Urine Opiates Level NEGATIVE (NEGATIVE) Ur Methadone NEGATIVE (NEGATIVE) Acetaminophen < 10 L (10-30) ug/ml Urine Barbiturates NEGATIVE (NEGATIVE) Ur Phencyclidine (PCP) NEGATIVE (NEGATIVE) Urine Amphetamine NEGATIVE (NEGATIVE) U Benzodiazepine Level NEGATIVE (NEGATIVE) Urine Cocaine NEGATIVE (NEGATIVE) Urine Marijuana (THC) POSITIVE A (NEGATIVE) Ethyl Alcohol < 10 (0-10) mg/dL 11/15/24 Range/Units 13:32 WBC 7.5 (4.23-9.07) x10^3/uL RBC 4.91 (4.63-6.08) x10^6/uL Hgb 13.7 (13.7-17.5) g/dL Hct 39.7 L (40.1-51.0) % MCV 80.9 (79.0-92.2) fL MCH 27.9 (25.7-32.2) pg MCHC 34.5 (32.3-36.5) g/dL RDW 12.4 (11.6-14.4) % Plt Count 227 (163-337) x10^3/uL MPV 9.7 (9.4-12.4) fL Gran % 62.0 (34.0-67.9) % Immature Gran % (Auto) 0.1 (0.001-0.429) % Nucleat RBC Rel Count 0.0 (0.00-0.2) % Eos # (Auto) 0.04 (0.04-0.54) x10^3/uL Immature Gran # (Auto) 0.01 (0.001-0.031) x10^3u/L Absolute Lymphs (auto) 2.32 (1.32-3.57) x10^3/uL Absolute Monos (auto) 0.45 (0.30-0.82) x10^3/uL Absolute Nucleated RBC 0.00 (0.00-0.012) x10^3u/L Lymphocytes % 31.0 (21.8-53.1) % Monocytes % 6.0 (5.3-12.2) % Eosinophils % 0.5 L (0.8-7.0) % Basophils % 0.4 (0.2-1.2) % Absolute Granulocytes 4.64 (1.78-5.38) x10^3/uL Basophils # 0.03 (0.01-0.08) x10^3/uL Sodium (135-145) mmol/L Potassium (3.5-5.1) mmol/L Chloride (98-107) mmol/L Carbon Dioxide (22-30) mmol/L Anion Gap (5-15) MEQ/L BUN (9-20) mg/dL Creatinine (0.66-1.25) mg/dL Estimated GFR ML/MIN Glucose (74-106) mg/dL Calcium (8.4-10.2) mg/dL Total Bilirubin (0.2-1.3) mg/dL AST (17-59) U/L ALT (0-50) U/L Alkaline Phosphatase (38-126) U/L Serum Total Protein (6.3-8.2) g/dL Albumin (3.5-5.0) g/dL Urine Color (Yellow) Urine Appearance (Clear) Urine pH (4.6-8.0) Ur Specific Bath (1.005-1.030) Urine Protein (Negative) Urine Glucose (UA) (Negative) mg/dL Urine Ketones (Negative) Urine Blood (Negative) Urine Nitrite (Negative) Urine Bilirubin (Negative) Urine Urobilinogen (0.2) mg/dL Ur Leukocyte Esterase (Negative) U Hyaline Cast (Auto) (0-2) /LPF Urine Microscopic RBC (0-5) /HPF Urine Microscopic WBC (0-5) /HPF Ur Epithelial Cells (None Seen) /HPF Urine Bacteria (None Seen) /HPF Urine Culture Reflexed (NO) Salicylates (2-20) mg/dL Urine Opiates Level (NEGATIVE) Ur Methadone (NEGATIVE) Acetaminophen (10-30) ug/ml Urine Barbiturates (NEGATIVE) Ur Phencyclidine (PCP) (NEGATIVE) Urine Amphetamine (NEGATIVE) U Benzodiazepine Level (NEGATIVE) Urine Cocaine (NEGATIVE) Urine Marijuana (THC) (NEGATIVE) Ethyl Alcohol (0-10) mg/dL - Progress Progress: improved Progress Note: 11/15/24 17:59 My medical decision making and the assignment of moderate complexity of this patient's medical issue today based on review of the patient's past medical history, review the patient's medication list, reviewed patient drug allergy list, history present illness and physical findings on examination. The workup in this patient includes twelve-lead EKG, CBC, CMP, acetaminophen level, salicylate level, urinalysis, urine drug triage, ethyl alcohol level. Differential diagnosis includes but is not limited to mood disorder, bipolar disorder, medication reaction, suicidal ideation 11/15/24 20:01 I evaluated the patient's laboratory data results. Based on the laboratory data results, there are no acute, emergent medical findings. The patient was evaluated by via telehealth/psych mental health evaluation. They have decided the patient is safe to go home on a safety plan. I spoke with the patient. He states that he is not suicidal. He was just feeling that way after restarting his medication. It occurred especially after the last 2 doses. Counseled pt/family regarding: lab results, diagnosis Medical Desision Making - Independent Historian Additional History obtained from: Family - Diagnostic Testing Diagnostic test were ordered, analyzed, and reviewed by me: Yes - Risk of complications Low Risk: Low risk of morbidity from additional dx testing or treatment - Departure Departure Disposition: Home Clinical Impression: Medication reaction, Anxiety, Depression Condition: Stable Critical Care Time: No Referrals: LAMAR CARBAJAL [Primary Care Provider, [facility]] - Follow up/PCP as directed Additional Instructions: Follow the outpatient safety plan that you and agreed to. Follow-up with at the agreed date and time as an outpatient
[2024-11-15 15:48] LABS: Absolute Neutrophil Ct (ANC) 4.64 x10^3/uL (1.78-5.38); BASOPHIL % 0.4 % (0.2-1.2); Basophil (Absolute #) 0.03 x10^3/uL (0.01-0.08); Eosinophil % 0.5 % (0.8-7.0); Eosinophil (Absolute #) 0.04 x10^3/uL (0.04-0.54); Hematocrit 39.7 % (40.1-51.0); Hemoglobin 13.7 g/dL (13.7-17.5); IMMATURE GRAN # 0.01 x10^3u/L (0.001-0.031); IMMATURE GRAN % 0.1 % (0.001-0.429); Lymphocyte (Absolute #) 2.32 x10^3/uL (1.32-3.57); Mean Cell Volume 80.9 fL (79.0-92.2); Mean Corpuscular Hemoglobin 27.9 pg (25.7-32.2); Mean Corpuscular Hgb Concent. 34.5 g/dL (32.3-36.5); Mean Platelet Volume 9.7 fL (9.4-12.4); Monocyte (Absolute #) 0.45 x10^3/uL (0.30-0.82); Platelet Count 227 x10^3/uL (163-337); Red Blood Count 4.91 x10^6/uL (4.63-6.08); Red Cell Distribution Width 12.4 % (11.6-14.4); White Blood Count 7.5 x10^3/uL (4.23-9.07)
[2024-11-15] MEDS ORDERED: Ativan 2 MG/1 ML VIAL ONE (15:48)
[2024-11-15] MEDS: Ativan 2 MG/1 ML VIAL IM ONE (15:49)
[2024-11-15 16:02] LABS: Appearance Clear (Clear); Bacteria None Seen /HPF (None Seen); Bilirubin Negative (Negative); Blood Negative (Negative); Epithelial Cells None Seen /HPF (None Seen); Glucose, Urine Negative (Negative); Hyaline Casts NONE SEEN /LPF (0-2); Ketones Negative (Negative); Leukocyte Esterase Negative (Negative); Nitrite Negative (Negative); Ph 7.5 (4.6-8.0); Protein,Urine Dip Negative (Negative); RBC 0-2 /HPF (0-5); Specific Gravity <=1.005 (1.005-1.030); Urobilinogen 0.2 mg/dL (0.2); WBC 0-2 /HPF (0-5)
[2024-11-15 16:04] LABS: ACETAMINOPHEN < 10 ug/ml (10-30); ALBUMIN 5.1 g/dL (3.5-5.0); ALKALINE PHOSPHATASE 67 U/L (38-126); ANION GAP 18.7 MEQ/L (5-15); BLOOD UREA NITROGEN 9 mg/dL (9-20); CHLORIDE 104 mmol/L (98-107); Calcium 9.9 mg/dL (8.4-10.2); Carbon Dioxide 23 mmol/L (22-30); Creatinine 1 0.81 mg/dL (0.66-1.25); EST GLOMERULAR FILTRATION RATE 128.6 ML/MIN; ETHYL ALCOHOL < 10 mg/dL (0-10); Glucose 95 mg/dL (74-106); Potassium 3.1 mmol/L (3.5-5.1); SALICYLATE < 1.0 mg/dL (2-20); SGOT/AST 27 U/L (17-59); SGPT/ALT 25 U/L (0-50); SODIUM 142 mmol/L (135-145); Total Protein 8.2 g/dL (6.3-8.2)
[2024-11-15 16:13] LABS: Amphetamine,Urine NEGATIVE (NEGATIVE); Barbiturate,Urine NEGATIVE (NEGATIVE); Benzodiazepine,Urine NEGATIVE (NEGATIVE); Cocaine,Urine NEGATIVE (NEGATIVE); Methadone,Urine NEGATIVE (NEGATIVE); Opiate,Urine NEGATIVE (NEGATIVE); PCP,Urine NEGATIVE (NEGATIVE); THC,Urine POSITIVE (NEGATIVE)
[2024-11-15] MEDS ORDERED: Klor Con ONE (16:42)
[2024-11-15] MEDS: Klor Con PO ONE (16:43)
[2024-11-15 19:21] VITALS: BP 149/80; PULSE 106; RESP 23
[2024-11-15 20:05] VITALS: O2SAT 100
== END 2024-11-15 20:34 | disposition home or self-care (01) ==
LOC: ED 14:59
DX: R45.851 Suicidal ideations (principal); T43.595A Adverse effect of other antipsychotics and neuroleptics, initial encounter; F41.9 Anxiety disorder, unspecified; F32.A Depression, unspecified; Z79.899 Other long term (current) drug therapy
CPT/HCPCS: 36415; 80053; 80143; 80179; 80307; 81001; 82077; 85025; 93005; 93041; 96372; 99284; J2060; A9270-GY